=== PATIENT | male | born 1940 | race Caucasian/White ===

== ENCOUNTER 2017-03-02 11:11 | Emergency (ER) | payer MEDICARE ==
--- NOTE | 2017-03-02 11:46 | Emergency Department Report ---
Chief Complaint: Abdominal Pain Stated Complaint: ABD/SIDE PAIN Time Seen by Provider: 03/02/17 11:43 - HPI History of Present Illness: PT c/o L sided abd pain since this am. - ROS Review of Systems: - hematuria + left lower abd pain + urgency + retention + nausea - Exam Vital Signs: Vital Signs 03/02/17 11:14 Temperature 98.7 F Pulse Rate 68 Respiratory 20 Rate Blood Pressure 152/80 O2 Sat by Pulse 99 Oximetry Physical Exam: PT holding Left lower abd abd with multiple scars soft, not tender at this time MSE screening note: Focused history and physical exam performed. Due to findings the following was ordered: labs, ct ED Disposition for MSE Condition: Stable
[2017-03-02 12:00] LABS: Basophils % (Auto) 0.4 % (0.0-1.8); Eosinophils % (Auto) 1.7 % (0.0-4.3); Hematocrit 46.4 % (35.5-45.6); Hemoglobin 14.9 gm/dl (11.8-15.2); Mean Corpuscular HGB Conc 32 % (32-34); Mean Corpuscular Hemoglobin 30 pg (28-32); Mean Corpuscular Volume 92 fl (84-94); Platelet Count 191 K/mm3 (140-440); Red Blood Count 5.03 M/mm3 (3.65-5.03); Red Cell Distribution Width 12.8 % (13.2-15.2); White Blood Count 9.7 K/mm3 (4.5-11.0)
[2017-03-02 12:02] LABS: Alanine Aminotransferase 19 units/L (7-56); Albumin 4.3 g/dL (3.9-5); Albumin/Globulin Ratio 1.1 %; Alkaline Phosphatase 72 units/L (35-129); Anion Gap 19 mmol/L; BUN/Creatinine Ratio 23.33; Blood Urea Nitrogen 21 mg/dL (9-20); Carbon Dioxide 26 mmol/L (22-30); Chloride 100.2 mmol/L (98-107); Glucose 139 mg/dL (75-100); Lipase 30 units/L (13-60); Potassium 4.9 mmol/L (3.6-5.0); Sodium 140 mmol/L (137-145); Total Protein 8.2 g/dL (6.3-8.2)
--- NOTE | 2017-03-02 12:38 | Cat Scan Report ---
CT OF THE ABDOMEN AND PELVIS WITHOUT CONTRAST HISTORY: Left flank pain. TECHNIQUE: Helical CT without contrast. Sagittal and coronal reformatted images. FINDINGS: A 2 mm calculus is identified in the distal left ureter just before the UVJ. There is mild left hydronephrosis. No right ureteral stones. A 2 mm calyceal stone is noted in the mid right kidney. No additional nephrolithiasis. The bladder is partially empty but unremarkable. Normal prostate gland. 5 mm gallstone is noted within the gallbladder. No biliary dilatation or inflammation. Within the limits of a noncontrast exam, the abdominal and pelvic viscera are within normal limits. The liver, pancreas, spleen, and adrenal glands are unremarkable. The bowel loops are normal caliber and wall thickness. Normal appendix. The aorta is normal caliber. No ascites, bulky adenopathy or inflammatory changes. The lung bases are clear. Normal heart size. No suspicious bony lesion. IMPRESSION: 2 mm distal left ureteral stone, mildly obstructing. 2 mm calyceal stone in the mid right kidney, nonobstructing. Gallstone.
[2017-03-02] MEDS ORDERED: TORADOL IM ONE (13:55)
[2017-03-02] MEDS ORDERED: ZOFRAN ODT PO ONE (17:23)
[2017-03-02] MEDS ORDERED: MORPHINE IM ONE (17:23)
[2017-03-02 17:32] LABS: Bilirubin,Urine NEG (Negative); Blood,Urine LG (Negative); Ketones,Urine TR mg/dL (Negative); Leukocyte Esterase,Urine TR (Negative); Mucus,Urine 1+ /HPF; Nitrite,Urine NEG (Negative); Protein,Urine <15 mg/dL mg/dL (Negative); Urobilinogen,Urine < 2.0 mg/dL (<2.0)
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
[2017-03-02 18:00] VITALS: BP 129/75
== END 2017-03-02 18:53 | disposition home or self-care (01) ==
LOC: ED 11:11
DX: N23 Unspecified renal colic (principal)
CPT/HCPCS: 36415; 74176; 80053; 81001; 83690; 85025; 96372; 99284; J1885; J2270; Q0162

== ENCOUNTER 2018-03-22 10:00 | Emergency (ER) | payer MEDICARE ==
[2018-03-22 10:26] VITALS: BP 136/65
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
[2018-03-22] MEDS ORDERED: BOOSTRIX IM ONE (11:24)
== END 2018-03-22 11:36 | disposition home or self-care (01) ==
LOC: ED 10:00
DX: S91.312A Laceration without foreign body, left foot, initial encounter (principal); W22.8XXA Striking against or struck by other objects, initial encounter; Y93.89 Activity, other specified; Y99.8 Other external cause status; Y92.89 Other specified places as the place of occurrence of the external cause
CPT/HCPCS: 90471; 90715; 99282